=== PATIENT | male | born 1970 | race Caucasian/White ===

== ENCOUNTER 2019-02-06 17:03 | Emergency (ER) | payer OTHER ==
[2019-02-06] MEDS ORDERED: Aspirin Chewable 81 MG TAB ONE (17:13)
[2019-02-06] MEDS ORDERED: Nitroglycerin 0.4 MG TAB 1 EACH ONE (17:13)
[2019-02-06 17:29] LABS: #Basophils 0.1 thou/uL (0.0-0.2); #Eosinphils 0.2 thou/uL (0.0-0.7); #Lymphocytes 2.8 thou/uL (1.20-3.40); #Monocytes 0.6 thou/uL (0.11-0.59); #Neutrophils 2.7 thou/uL (1.40-6.50); %Basophils 0.9 % (0.0-1.0); %Eosinophils 2.5 % (0.0-10.0); %Lymphocytes 44.5 % (21.0-51.0); %Monocytes 9.1 % (0.0-10.0); Hemoglobin 15.2 g/dL (14.0-18.0); Mean Corpuscular HGB CONC 33.7 g/dL (32.0-36.0); Mean Corpuscular Volume 89.2 fL (78.0-98.0); Mean Platelet Volume 7.9 fL (7.4-10.4); Platelet Count 219 thou/uL (130-400); RBC Distribution Width 11.2 % (11.5-14.5); Red Blood Cell (RBC) Count 5.07 mill/uL (4.70-6.10); White Blood Cell (WBC) Count 6.3 thou/uL (4.8-10.8)
[2019-02-06 17:44] LABS: ALT (SGPT) 30 U/L (8-55); AST (SGOT) 28 U/L (5-34); Albumin 4.2 g/dL (3.5-5.0); Alkaline Phosphatase 53 U/L (40-150); Anion Gap 17 mmol/L (10-20); BUN (Urea Nitrogen) 11 mg/dL (8.9-20.6); Bilirubin, Total 0.4 mg/dL (0.2-1.2); Calc. Creatinine Clearance 0 mL/min (70-130); Calcium 9.7 mg/dL (7.8-10.44); Carbon Dioxide 17 mmol/L (22-29); Chloride 108 mmol/L (98-107); Estimated GFR-MDRD 76; Glucose 79 mg/dL (70-105); Potassium 3.3 mmol/L (3.5-5.1); Protein, Total 7.2 g/dL (6.0-8.3); Sodium 139 mmol/L (136-145)
[2019-02-06] MEDS ORDERED: Potassium Chloride 20 MEQ TAB ONE (17:53)
[2019-02-06] MEDS ORDERED: Acetaminophen 500 MG TAB ONE (18:09)
[2019-02-06] MEDS ORDERED: Morphine 4 MG/ML VIAL ONE (18:28)
[2019-02-06] MEDS ORDERED: Ondansetron PF 4 MG/2 ML Vial ONE (18:28)
--- NOTE | 2019-02-06 19:30 | RAD ---
PORTABLE CHEST 02/06/19 An AP portable film at 1721 is compared with a 12/06/17 study. The heart is normal in size and the lungs are clear. There has been no adverse change in the interva l. The mediastinum appears normal. There are no effusions. IMPRESSION: No acute thoracic finding. POS: HOME
--- NOTE | 2019-02-06 19:39 | CT ---
CT ANGIO OF THE CHEST: 02/06/[address] of the chest was done for evaluation of possible pulmonary embolism. Axial slices were obt ained then MIP reconstructions in various planes through the pulmonary arteries were obtained. There is moderately good opacification in the pulmonary arteries. No large emboli are seen in the large to medium sized branches. The density of the bolus decreased in some of the peripheral branches where on e sees some mixing with nonopacified blood, so small more peripheral emboli would be missed on this s tudy. Some of the unevenness of contrast in these more distal branches is assumed to be due to this. There is no sign of aortic aneurysm or dissection. Both coronary arteries fill. No pericardial effusi on was seen. No mediastinal mass or significant adenopathy was present. The lungs are clear. No focal infiltrate or effusion was seen, only some mild dependent atelectasis. Scans into the upper abdomen showed some mild prominence of the splenic size, measuring about 15 cm i n length. No focal abnormalities were seen in any of the organs. The visible portions of the adrenal glands were normal. IMPRESSION: No acute findings. No evidence of pulmonary embolism. POS: HOME
[2019-02-06 19:42] LABS: Clarity Clear (Clear)
[2019-02-06 19:43] LABS: Bilirubin Negative (Negative); Blood, Urine Negative (Negative); Glucose, Urine (Dipstick) Negative (Negative); Leukocyte Negative (Negative); Nitrite Negative (Negative); Protein, Urine (Dipstick) Negative (Neg-Trace); Urobilinogen 0.2 mg/dL (Less than 2)
== END 2019-02-06 19:16 | disposition home or self-care (01) ==
LOC: BURERS 17:03
DX: T67.5XXA Heat exhaustion, unspecified, initial encounter (principal); F17.210 Nicotine dependence, cigarettes, uncomplicated; M06.9 Rheumatoid arthritis, unspecified; J44.9 Chronic obstructive pulmonary disease, unspecified; I47.1 Supraventricular tachycardia; Z79.899 Other long term (current) drug therapy
CPT/HCPCS: 71045; 71275; 80053; 81003; 83880; 84484; 85025; 85379; 93005; 96360; J2270; J2405

== ENCOUNTER 2019-09-05 08:17 | Emergency (ER) | payer OTHER ==
[2019-09-05] MEDS ORDERED: HYDROcodone/Acetaminophen 10/325 mg Tablet ONE (08:55)
[2019-09-05] MEDS ORDERED: Ibuprofen 800 MG TAB ONE (08:55)
--- NOTE | 2019-09-05 19:47 | RAD ---
CHEST TWO VIEWS: 09/05/19 Comparison is made with a 02/06/19 study. The heart is normal in size and the lungs are clear. No infiltrate, effusion or pneumothorax was seen . No major rib fracture was evident. There was a slight cortical irregularity along the superior surfac e of the right fifth rib anteriorly near its costochondral junction. This may or may not be of signif icance and should be correlated with any exact site of pain The exam otherwise is unremarkable. IMPRESSION: 1. No acute findings. 2. Equivocal irregularity of the left fifth rib anteriorly. Correlate with exact site of pain. Code T POS: HOME
== END 2019-09-05 09:49 | disposition home or self-care (01) ==
LOC: BURERS 08:17
DX: S22.32XA Fracture of one rib, left side, initial encounter for closed fracture (principal); M06.9 Rheumatoid arthritis, unspecified; J44.9 Chronic obstructive pulmonary disease, unspecified; F17.210 Nicotine dependence, cigarettes, uncomplicated; V87.8XXA Person injured in other specified noncollision transport accidents involving motor vehicle (traffic), initial encounter
CPT/HCPCS: 71046

== ENCOUNTER 2023-10-11 10:35 | Emergency (ER) | payer BC, OTHER ==
[~2023-10-11 10:35] MED LIST: Iopamidol 370 76% 100 ML VIAL ONE
[2023-10-11] MEDS ORDERED: Dicyclomine 20 MG/2 ML VIAL ONE (10:51)
[2023-10-11 10:53] LABS: #Basophils 0.1 thou/uL (0.0-0.2); #Eosinphils 0.2 thou/uL (0.0-0.7); #Monocytes 0.6 thou/uL (0.11-0.59); #Neutrophils 6.9 thou/uL (1.40-6.50); %Basophils 0.9 % (0.0-1.0); %Eosinophils 2.5 % (0.0-10.0); %Lymphocytes 20.2 % (21.0-51.0); %Monocytes 5.7 % (0.0-10.0); %Neutrophils 70.7 % (42.0-75.0); Hematocrit 38.3 % (42.0-52.0); Hemoglobin 13.7 g/dL (14.0-18.0); Mean Corpuscular HGB CONC 35.8 g/dL (32.0-36.0); Mean Corpuscular Hemoglobin 30.9 pg (27.0-31.0); Mean Corpuscular Volume 86.3 fl (78.0-98.0); Mean Platelet Volume 7.4 fL (7.4-10.4); Platelet Count 262 10x3/uL (130-400); RBC Distribution Width 11.5 % (11.5-14.5); Red Blood Cell (RBC) Count 4.44 mill/uL (4.70-6.10); White Blood Cell (WBC) Count 9.8 10x3/uL (4.8-10.8)
[2023-10-11 10:55] LABS: Bilirubin Negative (Negative); Blood, Urine Negative (Negative); Clarity Clear (Clear); Glucose, Urine (Dipstick) Negative (Negative); Ketone, Urine Negative (Negative); Leukocyte Trace (Negative); Nitrite Negative (Negative); Protein, Urine (Dipstick) Trace mg/dL (Neg-Trace); Urobilinogen 0.2 mg/dL (Less than 2); pH, Urine 5.5 (5.0-9.0)
[2023-10-11 11:02] LABS: RBC/HPF 0-3 HPF (0-3)
[2023-10-11 11:03] LABS: Bacteria/HPF 2+ HPF (None Seen); CAUTI Indications for Culture Dysuria,urgency,freq; Mucous/LPF 3+ LPF (<2+); Squamous Epithelial 0-3 HPF (0-3)
[2023-10-11 11:04] LABS: Urine Culture Reflex Yes Yes
[2023-10-11 11:09] LABS: ALT (SGPT) 48 U/L (8-55); AST (SGOT) 49 U/L (5-34); Albumin 4.3 g/dL (3.5-5.0); Alkaline Phosphatase 58 U/L (40-110); Anion Gap 14 mmol/L (10-20); BUN (Urea Nitrogen) 16 mg/dL (8.4-25.7); Bilirubin, Total 0.7 mg/dL (0.2-1.2); Calc. Creatinine Clearance 0 mL/min (70-130); Carbon Dioxide 21 mmol/L (22-29); Chloride 102 mmol/L (98-107); Estimated GFR 84; Globulin 2.9 g/dL (2.4-3.5); Glucose 100 mg/dL (70-105); Lipase 18 U/L (8-78); Potassium 4.1 mmol/L (3.5-5.1); Protein, Total 7.2 g/dL (6.0-8.3); Sodium 133 mmol/L (136-145)
[2023-10-11] MEDS ORDERED: fentaNYL 50 mcg/mL 1 mL Vial ONE ×2 (12:22→13:09)
== END 2023-10-11 15:40 | disposition short-term general hospital (02) ==
LOC: BURERS 10:35
DX: K56.609 Unspecified intestinal obstruction, unspecified as to partial versus complete obstruction (principal); J44.9 Chronic obstructive pulmonary disease, unspecified; I10 Essential (primary) hypertension; Z79.899 Other long term (current) drug therapy
CPT/HCPCS: 36415; 74177; 80053; 81001; 83605; 83690; 85025; 87086; 96372; 96374; 96376; J3010; Q9967